=== PATIENT | female | born 1975 | race African-American/Black ===

== ENCOUNTER 2018-02-13 02:30 | Emergency (ER) | payer SELFPAY ==
[~2018-02-13] VITALS: Ht 180.3 cm; Wt 148.8 kg
--- NOTE | 2018-02-13 03:20 | NUR ---
Patient discharged to home in stable conditon. Written and verbal after care instructions given. Patient verbalizes understanding of instructions. Walked out of ER with no distress noted
== END 2018-02-13 03:21 | disposition other institution (70) ==
LOC: ER 02:35
DX: R05 Cough (principal); J44.9 Chronic obstructive pulmonary disease, unspecified; Z88.8 Allergy status to other drugs, medicaments and biological substances
CPT/HCPCS: 99283; A4663